=== PATIENT | male | born 1940 ===

== ENCOUNTER 2018-05-20 07:50 | Day surgery (SDC) | payer MEDICARE ==
[2018-05-20] MEDS ORDERED: Verapamil 2 ML ONE (08:11)
[2018-05-20] MEDS ORDERED: Nitroglycerin 50mg in D5W 50 MG/250 ML BOTTLE IV ONE (08:12)
[2018-05-20] MEDS ORDERED: Iodixanol 320 MG/ML 200 ML BOTTLE IV ONE (08:12)
[2018-05-20] MEDS ORDERED: Midazolam 2 MG/2 ML VIAL ONE (08:12)
[2018-05-20] MEDS ORDERED: Iodixanol 320 MG/ML 100 ML BOTTLE IV ONE (08:12)
[2018-05-20] MEDS ORDERED: Lidocaine 2% PF (10 ml) Amp ONE (08:12)
[2018-05-20 08:56] VITALS: BMI 33.0
--- NOTE | 2018-05-20 19:57 | CARDCATH ---
PROCEDURE DATE: 05/20/2018 INDICATIONS: Kevin Valdivia is a 77-year-old male who presented to [facility] with complaints of CHF exacerbation, lower extremity swelling. The patient was ruled in for ACS with positive troponins and therefore was transferred over to [facility] for undergoing evaluation of coronary artery disease as manifestation of presentation for CHF with positive troponins. PROCEDURE PERFORMED: Left heart catheterization with selective left and right coronary angiogram. Left ventriculogram not performed due to elevated creatinine only end-diastolic pressures were obtained. A 6-Spanish right femoral access, Angio-Seal closure device for hemostasis. ANGIOGRAPHIC FINDINGS: Left main is a large size vessel bifurcation into left anterior descending and left circumflex coronary artery. Left circumflex runs in the AV groove, has a mid nonobstructive 40% stenosis runs distally into the groove with a small size branch, left anterior descending is a large size vessel, has a mid 45% to 50% stenosis. This vessel tapers into a small sized vessel with nonobstructive disease. RCA large sized vessel, distal RCA has a moderate 70% stenosis before the bifurcation of the PDA and PLB branches. PDA and PLB nonobstructive disease. Left ventricular end-diastolic pressure was 31 mmHg. IMPRESSION: Moderate distal right coronary artery with mild left anterior descending (coronary artery) and left circumflex disease, elevated end-diastolic pressure consistent with diastolic dysfunction. Moderate one vessel coronary artery disease. RECOMMENDATION: Aggressive medical management and risk factor modification. Consider PCI of distal RCA if the patient has ischemic symptoms. Keep the patient on dual antiplatelet therapy for non-STEMI. Continue the patient on guideline directed therapy for CAD and CHF. Adithya Lyle MD
[2018-05-22 13:16] VITALS: RESP 17; O2SAT 100
== END 2018-05-20 11:30 | disposition short-term general hospital (02) ==
LOC: C.CATHLAB 07:50
PROVIDERS: ATTEND Internal Medicine Interventional Cardiology
DX: I25.119 Atherosclerotic heart disease of native coronary artery with unspecified angina pectoris (principal); I21.4 Non-ST elevation (NSTEMI) myocardial infarction; I50.20 Unspecified systolic (congestive) heart failure; N18.9 Chronic kidney disease, unspecified; I13.0 Hypertensive heart and chronic kidney disease with heart failure and stage 1 through stage 4 chronic kidney disease, or unspecified chronic kidney disease
CPT/HCPCS: 82948; 93458; 94770; C1760; C1769; C1887; C1893; C1894; J1644; J2001; J2250; J3010; Q9966; Q9967